=== PATIENT | male | born 1975 | race Caucasian/White ===

== ENCOUNTER 2022-02-22 14:32 | Emergency (ER) | payer OTHER ==
[~2022-02-22] VITALS: Ht 193 cm; Wt 100.0 kg
[2022-02-22 14:46] VITALS: BP 130/68
[2022-02-22] MEDS ORDERED: LIDOcaine 1% W/epiNEPHrine 1:100,000 20ml vial IJ ONE (15:30)
[2022-02-22] MEDS ORDERED: CEPH250T PO (16:04)
== END 2022-02-22 16:27 | disposition home or self-care (01) ==
LOC: ER 14:34
DX: S61.431A Puncture wound without foreign body of right hand, initial encounter (principal); W45.8XXA Other foreign body or object entering through skin, initial encounter; Y93.89 Activity, other specified; Y92.89 Other specified places as the place of occurrence of the external cause; Y99.8 Other external cause status
CPT/HCPCS: 12001; 73120; 99283; A6222; J7030; A6449

== ENCOUNTER 2022-02-26 20:32 | Emergency (ER) | payer OTHER ==
[~2022-02-26] VITALS: Ht 193 cm; Wt 110.0 kg
[~2022-02-26 20:32] MED LIST: CEPH250T PO
[2022-02-26 21:14] VITALS: BP 131/74
== END 2022-02-26 22:33 | disposition left against medical advice (07) ==
LOC: ER 20:34
DX: H92.02 Otalgia, left ear (principal); Z53.21 Procedure and treatment not carried out due to patient leaving prior to being seen by health care provider